=== PATIENT | male | born 1985 | race Caucasian/White ===

== ENCOUNTER 2020-06-03 15:55 | Emergency (ER) | payer OTHER ==
--- NOTE | 2020-06-03 16:02 | ED Physician Documentation ---
PD HPI HEENT - Stated complaint Stated Complaint: FB IN EAR - History obtained from History obtained from: Patient - Additional information Additional information: He felt something in the ear. His looked in there and they think it is a godoy tail. No idea how he got in there. They do have kids. Review of Systems Constitutional: denies: Fever, Chills Eyes: denies: Loss of vision, Decreased vision Ears: denies: Loss of hearing Nose: denies: Rhinorrhea / runny nose PD PAST MEDICAL HISTORY - Allergies Allergies/Adverse Reactions: Allergies Allergy/AdvReac Type Severity Reaction Status Date / Time No Known Drug Allergies Allergy Verified 06/03/20 16:01 PD ED PE NORMAL - Vitals Vital signs reviewed: Yes - General General: Alert and oriented X 3, No acute distress - HEENT HEENT: PERRL, EOMI, Other (There is a godoy tail in the ear canal on the left.) - Neck Neck: Supple, no meningeal sign, No bony TTP - Neuro Neuro: Alert and oriented X 3, Normal speech Results - Vitals Vitals: Vital Signs - 24 hr 06/03/20 16:01 Temperature 37.0 C Heart Rate 73 Respiratory 19 Rate Blood Pressure 180/100 H O2 Saturation 100 Oxygen O2 Source Room air Procedures - FB removal FB location: Ear Removal method: Foreceps FB removal aftercare: No complications, Patient tolerated well, Removed successfully Departure - Departure Disposition: 01 Home, Self Care Clinical Impression: Foreign body sensation in left ear canal Condition: Good Record reviewed to determine appropriate education?: Yes Instructions: ED Foreign Body Ear Canal
[2020-06-03 16:03] VITALS: BP 180/100
== END 2020-06-03 16:10 | disposition home or self-care (01) ==
LOC: ED 15:55
DX: S00.452A Superficial foreign body of left ear, initial encounter (principal); X58.XXXA Exposure to other specified factors, initial encounter
CPT/HCPCS: 69200; 99281